=== PATIENT | male | born 2000 | race Caucasian/White ===

== ENCOUNTER 2024-10-12 12:05 | Observation (INO) ==
--- NOTE | 2024-10-12 12:30 | XRay Report ---
XR chest 1V not portable CLINICAL HISTORY: Chest pain, nonspecific COMPARISON STUDY: 12/27/2020 FINDINGS: Heart size and pulmonary vasculature are normal. No effusion, consolidation, or pneumothora x. IMPRESSION: No acute findings. ACT 112: Negative or not required by law. Electronically signed by: Mike Cárdenas M.D. 10/12/2024 12:29 PM
[2024-10-12 12:37] LABS: Basophils # (auto) 0.02 K/uL (0.00-0.20); Basophils % (auto) 0.1 %; Hematocrit (blood only) 39.1 % (42.0-52.0); Hemoglobin 13.5 g/dl (14.0-18.0); Immature Granulocytes # (auto) 0.06 K/uL (0.01-0.20); Immature Granulocytes % (auto) 0.4 %; Lymphocytes # (auto) 1.02 K/uL (1.20-3.40); Mean Corpuscular Hgb Conc 34.5 g/dL (32.0-36.0); Mean Corpuscular Volume 86.9 fL (80.0-100.0); Mean Platelet Volume 11.4 fL (9.4-12.4); Monocytes # (auto) 1.01 K/uL (0.11-0.59); Monocytes % (auto) 5.9 %; Neutrophils # (auto) 14.95 K/uL (1.40-6.50); Neutrophils % (auto) 87.6 %; Platelet Count 172 K/uL (130-400); RDW Coefficient of Variation 13.2 % (11.5-14.5); RDW Standard Deviation 41.5 fL (36.4-46.3); White Blood Count 17.06 K/ul (4.8-10.8)
[2024-10-12] MEDS: ONDANSETRON INJ 2 MG/ML 2 ML VIAL IV STA (12:45)
[2024-10-12] MEDS: MoRPHine SULFATE 2 MG/ML CARP IV STA (12:45)
[2024-10-12 12:51] LABS: Albumin Globulin Ratio 1.3 (0.9-2); Albumin Level 4.5 gm/dl (3.4-5.0); Bilirubin,Total 0.8 mg/dl (0.2-1.0); Calcium 9.7 mg/dl (8.6-10.3); Creatinine Clr Calc Pharmacy 114.8 ml/min; Globulin 3.5 gm/dl (2.5-4.0); Magnesium 1.8 mg/dl (1.7-2.4); Potassium 3.8 mmol/L (3.5-5.1)
[2024-10-12 12:58] LABS: Troponin I High Sensitivity 4.6 pg/ml (0-20)
[2024-10-12 13:02] LABS: Partial Thromboplastin Ratio 1.2; Partial Thromboplastin Time 31 Seconds (21-31); Prothrombin Time 11.3 Seconds (9.0-12.0)
[2024-10-12] MEDS: OPTIRAY 320 125ml IV ONE (13:25)
--- NOTE | 2024-10-12 13:38 | CT Scan Report ---
CT angio chest PE protocol CT DOSE: 707.07 mGy.cm HISTORY: PE. TECHNIQUE: Multiple CTA images of the chest were obtained after the intravenous administration of 120 ml Optiray. Coronal and sagittal MIPS were obtained from the axial data set and were submitted for review. All measurements were obtained according to NASCET criteria. A dose lowering technique was u tilized adhering to the principles of ALARA. COMPARISON STUDY: Chest x-ray earlier today FINDINGS: There is surgical suture at the right lung apex. There is a 7 mm irregular pulmonary nodule lateral inferior right upper lobe series 4 image 137. There is no pulmonary consolidation or pleural effusion. No pneumothorax. No enlarged adenopathy. No pericardial effusion. No thoracic aortic disse ction or aneurysm. No pulmonary embolism. No acute osseous findings. IMPRESSION: 1. No pulmonary embolism or pneumonia seen. 2. 7 mm right upper lobe pulmonary nodule. No prior CT scan is available for comparison. If there are outside CT scans available which establish greater than 2 years of stability for this finding, no fu rther follow-up is needed. If not, follow-up chest CT recommended in 6 months. ACT 112: Positive. There are findings on this exam that require communication between the performing entity and the patient following Patient Test Result Information Act ([place] Act 112) guidelines. The above report was generated using voice recognition software. It may contain grammatical, syntax o r spelling errors. Electronically signed by: Mike Cárdenas M.D. 10/12/2024 1:36 PM
[2024-10-12] MEDS: SODIUM CHLORIDE 0.9% 1,000 ML IV ONE ×2 (13:49→15:00)
[2024-10-12] MEDS: ACETAMINOPHEN 1,000 MG/100 ML VIAL IV STA (13:49)
--- NOTE | 2024-10-12 14:02 | Emergency Department Note ---
Impression & Plan SIRS (systemic inflammatory response syndrome), Chest pain, Shortness of breath, Leukocytosis, Fever, Sinus tachycardia ED Provider Note HISTORY OF PRESENT ILLNESS: Patient is a 24-year-old male presenting with chest pain and shortness of breath. Patient reports that he started feeling very short of breath yesterday. 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 He states that he has had continuous, lower chest pain since yesterday. He states that it feels like there is a band wrapping around his lower chest and it is hard to breathe. He states that today while at work it was hard for him to walk up a hill with a tool bag secondary to being so short of breath. 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 He denies any recent fevers or cough. Denies any recent sick contact exposures. He denies any abdominal pain, nausea or vomiting. He denies any dysuria or hematuria. ROS: as above PHYSICAL EXAM: Constitutional: Patient appears in no acute distress. HENT: Head: Normocephalic and atraumatic. Eyes: EOMI, PERRL Mouth/Throat: Mucous membranes moist. Neck: Trachea midline. Neck supple. Cardiovascular: Tachycardic with regular rhythm. No murmurs, rubs or gallops. Intact distal pulses. Pulmonary/Chest: No respiratory distress. Breath sounds clear and equal bilaterally. No wheezes or rales. Abdominal: Abdomen soft, no tenderness, rebound or guarding. Musculoskeletal: No edema, tenderness or deformity noted. Skin: Warm and dry. No rash, erythema, pallor or cyanosis Psychiatric: Appropriate mood and affect for situation. Neurological: Alert and keenly responsive. CN II-XII grossly intact, moving all extremities equally and fully. MDM: - Vitals signs showed tachycardia - History obtained via patient. History as above. - Chronic conditions affecting care: Mycoplasma pneumonia; recurrent pneumothoraces - Differential diagnoses include, but are not limited to: Acute coronary syndrome; pulmonary embolism; dissection; tension pneumothorax; esophageal rupture; pneumonia - Order placed for continuous cardiac monitoring. At this time, monitor showed rate of 125 bpm with normal sinus rhythm, per my interpretation. - External medical records reviewed. Primary care visit note dated 01/21/2024 was reviewed. Patient was seen to establish care. His tetanus shot was updated at that visit. - EKG image interpreted by myself showed normal sinus rhythm. Rate tachycardic at 118 bpm. QT 318. No acute ischemic changes. - Laboratory workup interpreted by myself showed leukocytosis (WBC 17.06) with neutrophil predominance; normal PT/INR; normal lactate; hyponatremia (Na 135); normal procalcitonin; normal troponin; normal AST/ALT - Blood cultures obtained - CXR image reviewed by myself is negative for pneumothorax or pneumonia, per my interpretation. - Patient initially given 4 mg IV morphine and 4 mg IV zofran for chest pain symptoms. He was febrile in the emergency department and given 1 g of IV Tylenol. Given his persistent tachycardia, he was given a total of 2 L normal saline. - Patient's sepsis fluid volume calculation based on ideal body weight is 2427.00 mL. - Given 2g IV rocephin empirically - CT PE negative for PE or pneumonia. Noted to have a 7mm right upper lobe pulmonary nodule - UA negative for infection - Viral respiratory panel negative. - Patient's HR still tachycardic at 110 bpm, but improved from persistent 120s after 2L NS. - Tick borne illness studies added to patient's workup - Given patient's fever, tachycardia, tachypnea and leukocytosis, patient meets SIRS criteria. - Discussion was had with case manager specialist about patient's case and need for admission - Hospitalist, Dr. Araiza, consulted for admission - [facility]. I have personally spent 32 minutes of critical care time in the direct management of this patient. This includes bedside care, interpretation of diagnostic studies, and testing, discussion with consultants, patient, and family members, and other required patient management activities. This 32 minutes is in excess of all separately billable procedures. ASSESSMENT AND PLAN: Diagnosis: SIRS; chest pain; shortness of breath; sinus tachycardia; leukocytosis; fever Plan: Admit Past Med/Surg History Problem List (Updated 10/12/24 @ 16:02 by Alexa Membreno MD) Sinus tachycardia (Acute) Fever (Acute) Leukocytosis (Acute) Shortness of breath (Acute) Chest pain (Acute) SIRS (systemic inflammatory response syndrome) (Acute) Patellar tendonitis of right knee Medical History Pneumothorax Mycoplasma pneumonia Surgical History S/P lobectomy of lung Family History Father Diabetes Hypertension Stroke Grandmother Diabetes Mother Epilepsy Other No significant family history Social History Smoking Status: Never smoker Hx Alcohol Use: Yes Alcohol type: beer Alcohol Intake Frequency: 2-4 x/Month Hx Substance Use: No Preferred Language: German marital status: Current Living Situation: Significant Other current occupational status: employed current occupation: [employer] Feels Safe at Home: Yes Childhood Exposure to Second-Hand Smoke: Yes Diet: regular caffeine: Yes Dental Care, Regularly: Yes Physical Activity Frequency: Daily Seatbelt Use: always Sunscreen Use: Yes Allergies Allergies Allergy/AdvReac Type Severity Reaction Status Date / Time No Known Allergies Allergy Unverified 05/04/24 10:38 Home Meds Home Medications Medication Instructions Recorded Confirmed No Known Home Medications 10/12/24 10/12/24 Results & Data (ED) Vital Signs Vital Signs - 24 hr 10/12/24 12:07 10/12/24 12:15 10/12/24 12:30 Temperature 36.6 C Temperature Source Temporal Artery Scan Pulse Rate 125 H 109 H 108 H Pulse Rate from SpO2 Sensor 114 H Pulse Rhythm Regular Respiratory Rate 20 19 17 Respiratory Effort / Characteristics Non-Labored Spontaneous Respiratory Depth Normal Respiratory Pattern Regular Blood Pressure 124/91 Blood Pressure [Left Arm] Blood Pressure Mean 102 Blood Pressure Mean [Left Arm] Blood Pressure Position [Left Arm] Pulse Oximetry 98 98 99 Oxygen Delivery Method Room Air Room Air Sepsis Recent Fever Within 48 Hours No Sepsis New/Unexplained Change in Mental Status No Sepsis Action Taken by Nursing No Action Required 10/12/24 12:42 10/12/24 12:54 10/12/24 13:20 Temperature 38.1 C H Temperature Source Oral Pulse Rate 105 H 106 H Pulse Rate from SpO2 Sensor 106 H 108 H Pulse Rhythm Respiratory Rate 24 17 Respiratory Effort / Characteristics Respiratory Depth Respiratory Pattern Blood Pressure Blood Pressure [Left Arm] Blood Pressure Mean Blood Pressure Mean [Left Arm] Blood Pressure Position [Left Arm] Pulse Oximetry 96 94 Oxygen Delivery Method Sepsis Recent Fever Within 48 Hours Sepsis New/Unexplained Change in Mental Status Sepsis Action Taken by Nursing 10/12/24 13:25 10/12/24 14:31 10/12/24 14:35 Temperature 36.5 C Temperature Source Temporal Artery Scan Pulse Rate 123 H Pulse Rate from SpO2 Sensor Pulse Rhythm Respiratory Rate Respiratory Effort / Characteristics Respiratory Depth Respiratory Pattern Blood Pressure Blood Pressure [Left Arm] 93/55 L Blood Pressure Mean Blood Pressure Mean [Left Arm] 67 Blood Pressure Position [Left Arm] Lying Pulse Oximetry Oxygen Delivery Method Sepsis Recent Fever Within 48 Hours Sepsis New/Unexplained Change in Mental Status Sepsis Action Taken by Nursing 10/12/24 14:36 Temperature Temperature Source Pulse Rate Pulse Rate from SpO2 Sensor Pulse Rhythm Respiratory Rate Respiratory Effort / Characteristics Respiratory Depth Respiratory Pattern Blood Pressure Blood Pressure [Left Arm] 98/52 L Blood Pressure Mean Blood Pressure Mean [Left Arm] 67 Blood Pressure Position [Left Arm] Lying Pulse Oximetry Oxygen Delivery Method Sepsis Recent Fever Within 48 Hours Sepsis New/Unexplained Change in Mental Status Sepsis Action Taken by Nursing Laboratory Data 10/12/24 12:19 10/12/24 12:19 Lab Results 10/12/24 10/12/24 10/12/24 Range/Units 12:19 14:00 15:12 WBC 17.06 H (4.8-10.8) K/ul RBC 4.50 L (4.70-6.10) M/uL Hgb 13.5 L (14.0-18.0) g/dl Hct 39.1 L (42.0-52.0) % MCV 86.9 (80.0-100.0) fL MCH 30.0 (25.0-34.0) pg MCHC 34.5 (32.0-36.0) g/dL RDW Std Deviation 41.5 (36.4-46.3) fL RDW Coeff of Alecia 13.2 (11.5-14.5) % Plt Count 172 (130-400) K/uL MPV 11.4 (9.4-12.4) fL Immature Gran % (Auto) 0.4 % Neut % (Auto) 87.6 % Lymph % (Auto) 6.0 % Estill % (Auto) 5.9 % Eos % (Auto) 0.0 % Baso % (Auto) 0.1 % Neut # (Auto) 14.95 H (1.40-6.50) K/uL Lymph # (Auto) 1.02 L (1.20-3.40) K/uL Estill # (Auto) 1.01 H (0.11-0.59) K/uL Eos # (Auto) 0.00 (0.00-0.50) K/uL Baso # (Auto) 0.02 (0.00-0.20) K/uL Immature Gran # (Auto) 0.06 (0.01-0.20) K/uL PT 11.3 (9.0-12.0) Seconds INR 1.0 (0.9-1.1) APTT 31 (21-31) Seconds PTT Ratio 1.2 Sodium 135 L (136-145) mmol/L Potassium 3.8 (3.5-5.1) mmol/L Chloride 99 (98-107) mmol/L Carbon Dioxide 28 (21-32) mmol/L Anion Gap 8 (3-11) BUN 14 (6-23) mg/dl Creatinine 1.08 (0.6-1.4) mg/dl Est Cr Clr Drug Dosing 114.8 ml/min eGFR 97.67 BUN/Creatinine Ratio 13.0 (10-20) Glucose 106 H (70-99(Fasting)) mg/dl Lactate 0.8 (0.4-2.0) mmol/L Calcium 9.7 (8.6-10.3) mg/dl Magnesium 1.8 (1.7-2.4) mg/dl Total Bilirubin 0.8 (0.2-1.0) mg/dl AST 22 (13-39) U/L ALT 12 (7-52) U/L Alkaline Phosphatase 58 (34-104) U/L Troponin I High Sens 4.6 (0-20) pg/ml Total Protein 8.0 (6.0-8.3) gm/dl Albumin 4.5 (3.4-5.0) gm/dl Globulin 3.5 (2.5-4.0) gm/dl Albumin/Globulin Ratio 1.3 (0.9-2) Procalcitonin 0.08 (0-0.5) ng/ml Urine Color Urine Appearance (Clear) Urine pH (4.5-7.5) Ur Specific [place] (1.000-1.030) Urine Protein (Negative) Urine Glucose (UA) (Negative) Urine Ketones (Negative) Urine Blood (Negative) Urine Nitrite (Negative) Urine Bilirubin (Negative) Urine Urobilinogen (Negative) Ur Leukocyte Esterase (Negative) Urine Comment Adenovirus (PCR) Not Detected (NotDetected) B. pertussis DNA (PCR) Not Detected (NotDetected) B.parapertussis DNA PCR Not Detected (NotDetected) C. pneumoniae DNA (PCR) Not Detected (NotDetected) Coronavirus OC43 (PCR) Not Detected (NotDetected) Coronavirus HKU1 (PCR) Not Detected (NotDetected) Coronavirus 229E (PCR) Not Detected (NotDetected) SARS-CoV-2 (PCR) Not Detected (NotDetected) Coronavirus NL63 (PCR) Not Detected (NotDetected) Human Metapneumovir PCR Not Detected (NotDetected) Influenza Type A (PCR) Not Detected (NotDetected) Influenza Type B (PCR) Not Detected (NotDetected) M. pneumoniae (PCR) Not Detected (NotDetected) Parainfluenza 1 (PCR) Not Detected (NotDetected) Parainfluenza 2 (PCR) Not Detected (NotDetected) Parainfluenza 3 (PCR) Not Detected (NotDetected) Parainfluenza 4 (PCR) Not Detected (NotDetected) RSV (PCR) Not Detected (NotDetected) Entero/Rhino (PCR) Not Detected (NotDetected) 10/12/24 Range/Units 15:21 WBC (4.8-10.8) K/ul RBC (4.70-6.10) M/uL Hgb (14.0-18.0) g/dl Hct (42.0-52.0) % MCV (80.0-100.0) fL MCH (25.0-34.0) pg MCHC (32.0-36.0) g/dL RDW Std Deviation (36.4-46.3) fL RDW Coeff of Alecia (11.5-14.5) % Plt Count (130-400) K/uL MPV (9.4-12.4) fL Immature Gran % (Auto) % Neut % (Auto) % Lymph % (Auto) % Estill % (Auto) % Eos % (Auto) % Baso % (Auto) % Neut # (Auto) (1.40-6.50) K/uL Lymph # (Auto) (1.20-3.40) K/uL Estill # (Auto) (0.11-0.59) K/uL Eos # (Auto) (0.00-0.50) K/uL Baso # (Auto) (0.00-0.20) K/uL Immature Gran # (Auto) (0.01-0.20) K/uL PT (9.0-12.0) Seconds INR (0.9-1.1) APTT (21-31) Seconds PTT Ratio Sodium (136-145) mmol/L Potassium (3.5-5.1) mmol/L Chloride (98-107) mmol/L Carbon Dioxide (21-32) mmol/L Anion Gap (3-11) BUN (6-23) mg/dl Creatinine (0.6-1.4) mg/dl Est Cr Clr Drug Dosing ml/min eGFR BUN/Creatinine Ratio (10-20) Glucose (70-99(Fasting)) mg/dl Lactate (0.4-2.0) mmol/L Calcium (8.6-10.3) mg/dl Magnesium (1.7-2.4) mg/dl Total Bilirubin (0.2-1.0) mg/dl AST (13-39) U/L ALT (7-52) U/L Alkaline Phosphatase (34-104) U/L Troponin I High Sens (0-20) pg/ml Total Protein (6.0-8.3) gm/dl Albumin (3.4-5.0) gm/dl Globulin (2.5-4.0) gm/dl Albumin/Globulin Ratio (0.9-2) Procalcitonin (0-0.5) ng/ml Urine Color Yellow Urine Appearance Clear (Clear) Urine pH 6.5 (4.5-7.5) Ur Specific [place] > 1.045 H (1.000-1.030) Urine Protein Negative (Negative) Urine Glucose (UA) Negative (Negative) Urine Ketones 2+ H (Negative) Urine Blood Negative (Negative) Urine Nitrite Negative (Negative) Urine Bilirubin Negative (Negative) Urine Urobilinogen Negative (Negative) Ur Leukocyte Esterase Negative (Negative) Urine Comment Adenovirus (PCR) (NotDetected) B. pertussis DNA (PCR) (NotDetected) B.parapertussis DNA PCR (NotDetected) C. pneumoniae DNA (PCR) (NotDetected) Coronavirus OC43 (PCR) (NotDetected) Coronavirus HKU1 (PCR) (NotDetected) Coronavirus 229E (PCR) (NotDetected) SARS-CoV-2 (PCR) (NotDetected) Coronavirus NL63 (PCR) (NotDetected) Human Metapneumovir PCR (NotDetected) Influenza Type A (PCR) (NotDetected) Influenza Type B (PCR) (NotDetected) M. pneumoniae (PCR) (NotDetected) Parainfluenza 1 (PCR) (NotDetected) Parainfluenza 2 (PCR) (NotDetected) Parainfluenza 3 (PCR) (NotDetected) Parainfluenza 4 (PCR) (NotDetected) RSV (PCR) (NotDetected) Entero/Rhino (PCR) (NotDetected) Administered Medications Discontinued Medications Acetaminophen (Ofirmev) 1,000 mg in 100 mls @ 400 mls/hr IV NOW STA Stop: 10/12/24 13:50 Last Infusion: 10/12/24 14:07 Dose: Infused Documented By: Admin: 10/12/24 13:49 Dose: 400 mls/hr Documented By: PACO Sodium Chloride (Nss) 1,000 mls @ 999 mls/hr IV .Q1H1M ONE Stop: 10/12/24 14:36 Last Infusion: 10/12/24 15:19 Dose: Infused Documented By: Admin: 10/12/24 13:49 Dose: 999 mls/hr Documented By: PACO Sodium Chloride (Nss) 1,000 mls @ 999 mls/hr IV .Q1H1M ONE Stop: 10/12/24 15:46 Last Admin: 10/12/24 15:00 Dose: 999 mls/hr Documented By: PACO Ceftriaxone Sodium (Rocephin) 2,000 mg in 50 mls @ 100 mls/hr IV NOW STA Stop: 10/12/24 15:51 Last Admin: 10/12/24 15:35 Dose: 100 mls/hr Documented By: PACO Ioversol (Optiray 320 125ml) 120 ml IV ONCE ONE Stop: 10/12/24 13:26 Last Admin: 10/12/24 13:25 Dose: 120 ml Documented By: KIAH Morphine Sulfate (Morphine Sulfate 2 Mg/Ml Carp) 4 mg IV NOW STA Stop: 10/12/24 12:34 Last Admin: 10/12/24 12:45 Dose: 4 mg Documented By: PACO Ondansetron HCl (Ondansetron Inj 2 Mg/Ml 2 Ml Vial) 4 mg IV NOW STA Stop: 10/12/24 12:34 Last Admin: 10/12/24 12:45 Dose: 4 mg Documented By: PACO Imaging Data Radiologist's Impression: Chest X-Ray 10/12/24 12:15 XR chest 1V not portable CLINICAL HISTORY: Chest pain, nonspecific COMPARISON STUDY: 12/27/2020 FINDINGS: Heart size and pulmonary vasculature are normal. No effusion, consolidation, or pneumothorax. IMPRESSION: No acute findings. ACT 112: Negative or not required by law. Electronically signed by: Mike Cárdenas M.D. 10/12/2024 12:29 PM Chest CTA 10/12/24 12:33 CT angio chest PE protocol CT DOSE: 707.07 mGy.cm HISTORY: PE. TECHNIQUE: Multiple CTA images of the chest were obtained after the intravenous administration of 120 ml Optiray. Coronal and sagittal MIPS were obtained from the axial data set and were submitted for review. All measurements were obtained according to NASCET criteria. A dose lowering technique was utilized adhering to the principles of ALARA. COMPARISON STUDY: Chest x-ray earlier today FINDINGS: There is surgical suture at the right lung apex. There is a 7 mm irregular pulmonary nodule lateral inferior right upper lobe series 4 image 137. There is no pulmonary consolidation or pleural effusion. No pneumothorax. No enlarged adenopathy. No pericardial effusion. No thoracic aortic dissection or aneurysm. No pulmonary embolism. No acute osseous findings. IMPRESSION: 1. No pulmonary embolism or pneumonia seen. 2. 7 mm right upper lobe pulmonary nodule. No prior CT scan is available for comparison. If there are outside CT scans available which establish greater than 2 years of stability for this finding, no further follow-up is needed. If not, follow-up chest CT recommended in 6 months. ACT 112: Positive. There are findings on this exam that require communication between the performing entity and the patient following Patient Test Result Information Act ([place] Act 112) guidelines. The above report was generated using voice recognition software. It may contain grammatical, syntax or spelling errors. Electronically signed by: Mike Cárdenas M.D. 10/12/2024 1:36 PM Discharge Plan Visit Data Chief Complaint: Chest Pain Stated Complaint: TIGHT CHEST, CANT CATCH BREATH, BODY SORE ED Provider: Alexa Membreno Discharge Problem: SIRS (systemic inflammatory response syndrome), Chest pain, Shortness of breath, Leukocytosis, Fever, Sinus tachycardia Condition: Fair Forms Stand Alone Forms: [employer] [facility] [employer] Prescriptions Prescriptions: No Action No Known Home Medications Referrals Referrals: Shiela Mayorga CRNP [Primary Care Provider] -
[2024-10-12 15:10] LABS: Adenovirus PCR Not Detected (NotDetected); Bordetella parapertussis PCR Not Detected (NotDetected); Bordetella pertussis PCR Not Detected (NotDetected); Chlamydia pneumoniae PCR Not Detected (NotDetected); Coronavirus 229E PCR Not Detected (NotDetected); Coronavirus CoV-2 (COVID19)PCR Not Detected (NotDetected); Coronavirus HKU1 PCR Not Detected (NotDetected); Coronavirus NL63 PCR Not Detected (NotDetected); Coronavirus OC43PCR Not Detected (NotDetected); Human Metapneumovirus PCR Not Detected (NotDetected); Influenza A PCR Not Detected (NotDetected); Influenza B PCR Not Detected (NotDetected); Mycoplasma pneumoniae PCR Not Detected (NotDetected); Parainfluenza Virus 1 PCR Not Detected (NotDetected); Parainfluenza Virus 2 PCR Not Detected (NotDetected); Parainfluenza Virus 3 PCR Not Detected (NotDetected); Parainfluenza Virus 4 PCR Not Detected (NotDetected); Respiratory Syncytial VirusPCR Not Detected (NotDetected); Rhinovirus/Enterovirus PCR Not Detected (NotDetected)
[2024-10-12] MEDS: cefTRIAXone SODIUM 2,000 MG/50 ML BAG IV STA (15:35)
[2024-10-12 15:44] LABS: Appearance Urine Clear (Clear); Bilirubin Urine Negative (Negative); Blood Urine Negative (Negative); Color Urine Yellow; Glucose Urine UA Negative (Negative); Ketones Urine 2+ (Negative); Leukocyte Esterase Urine Negative (Negative); Nitrite Urine Negative (Negative); Protein Urine Negative (Negative); Specific Gravity Urine > 1.045 (1.000-1.030); Urobilinogen Urine Negative (Negative); pH Urine 6.5 (4.5-7.5)
--- NOTE | 2024-10-12 17:36 | History & Physical Report ---
Date of Service October 12, 2024 Assessment & Plan (1) Viral illness: Plan: Suspected cause of current symptoms including atypical chest discomfort, shortness of breath, intermittent fever. Parenteral steroid therapy ordered. IV fluids overnight. Supportive care (2) SIRS (systemic inflammatory response syndrome): Plan: Present on admission due to viral illness Plan Hopeful discharge to home tomorrowOctober 13 History of Present Illness Chief Complaint: Shortness of breath with exertion, atypical chest discomfort Primary Care Provider: ELE Simmons 24-year-old white male and previously good health who for the past day or 2 has had intermittent low-grade fever, shortness of breath with exertion, and atypical chest discomfort. Chest x-ray on admission is negative as is the chest CTA. EKG is unremarkable and troponin is normal. This appears to be a viral illness and he will be started on parenteral steroid therapy. Observation status for now and probably home tomorrow, October 13. He denies palpitations, syncope, productive cough, hemoptysis. No pleurisy symptoms Allergies Allergy/AdvReac Type Severity Reaction Status Date / Time No Known Allergies Allergy Unverified 05/04/24 10:38 Home Medications Medication Instructions Recorded Confirmed Type No Known Home Medications 10/12/24 10/12/24 History Past Med/Surg History Problem List (Updated 10/12/24 @ 17:35 by Florin Barillas MD) Viral illness Sinus tachycardia (Acute) Fever (Acute) Leukocytosis (Acute) Shortness of breath (Acute) Chest pain (Acute) SIRS (systemic inflammatory response syndrome) (Acute) Patellar tendonitis of right knee Medical History Pneumothorax Mycoplasma pneumonia Surgical History S/P lobectomy of lung Family History Father Diabetes Hypertension Stroke Grandmother Diabetes Mother Epilepsy Other No significant family history Social History Smoking Status: Never smoker Hx Alcohol Use: Yes Alcohol type: beer Alcohol Intake Frequency: 2-4 x/Month Hx Substance Use: No Preferred Language: Nigerien marital status: Current Living Situation: Significant Other current occupational status: employed current occupation: [employer] Feels Safe at Home: Yes Childhood Exposure to Second-Hand Smoke: Yes Diet: regular caffeine: Yes Dental Care, Regularly: Yes Physical Activity Frequency: Daily Seatbelt Use: always Sunscreen Use: Yes Review of Systems 2 Review of Systems: Constitutionalno fever or chills ENTno blurred vision, no double vision, no epistaxis, no sore throat Respiratoryno cough, no wheezing. He has noted some exertional shortness of breath Cardiacno palpitations, no syncope. Atypical chest discomfort at rest Alisa nausea, vomiting, diarrhea, melena, hematochezia GUno urinary retention, no urinary incontinence, no dysuria, no hematuria Musculoskeletalno joint pain, no muscle tenderness Skinno bruising, no rashes, no pruritus Neurono isolated weakness, no paresthesia, no weakness Psychno depression, no anxiety Physical Exam 2 Physical Exam: General-alert and oriented x3, no fever, no chills HEENT-head atraumatic and normocephalic, pupils equal and reactive to light, extraocular muscles intact Neck-no lymphadenopathy or thyromegaly, trachea midline Chest-clear to auscultation. No rales, wheezing or rhonchi Cardiac-regular rate and rhythm, normal S1 and S2 Abdomen-normal bowel sounds, no hepatosplenomegaly Extremities-no cyanosis, clubbing, or edema Neuro-cranial nerves II through XII intact, motor and sensory function within normal limits, strength symmetrical, no focal deficits Psych-normal affect, normal mood Results & Data Results & Data Vital Signs (Past 12 Hours) Vital Signs Temp Pulse Resp BP BP Pulse Ox O2 Del Method 10/12/24 17:22 100 H 10/12/24 14:36 98/52 L 10/12/24 14:35 93/55 L 10/12/24 14:31 36.5 C 10/12/24 13:25 123 H 10/12/24 13:20 38.1 C H 10/12/24 12:54 106 H 17 94 10/12/24 12:42 105 H 24 96 10/12/24 12:30 108 H 17 99 10/12/24 12:15 109 H 19 98 Room Air 10/12/24 12:07 36.6 C 125 H 20 124/91 98 Room Air Laboratory Results 10/12/24 12:19 10/12/24 12:19 Code Status & VTE Plan Code Status Full code PG Care Time/CCT Total # of Minutes Spent Total Time Spent with Patient: Total time spent is greater than 50% in coordination of care (as documented) at patient's floor/unit and/or counseling patient: Coding Level of Care Code 31815 INT INP/OBS CARE 2/55MIN Diagnoses Viral illness B34.9 SIRS (systemic inflammatory response syndrome) R65.10
[2024-10-12] MEDS: KETOROLAC TROMETHAMINE 15 MG/ML VIAL IV STA (19:00)
[2024-10-12] MEDS ORDERED: ONDANSETRON INJ 2 MG/ML 2 ML VIAL IV PRN (20:54)
[2024-10-12] MEDS ORDERED: methylPREDNISolone 10 mg/mL (For Ped Dose < 7mg) IV SCH (20:54)
[2024-10-12] MEDS: SODIUM CHLORIDE 0.9% 1,000 ML IV SCH (21:14)
[2024-10-12 21:19] LABS: BUN Creatinine Ratio 12.6 (10-20); Calcium 8.7 mg/dl (8.6-10.3); Creatinine Clr Calc Pharmacy 130.5 ml/min; Potassium 3.7 mmol/L (3.5-5.1)
[2024-10-12] MEDS: methylPREDNISolone 40 MG in SYRINGE 0 ML IV SCH (21:42)
[2024-10-12] MEDS: ACETAMINOPHEN 325 MG TAB PO PRN (21:48)
--- NOTE | 2024-10-13 06:21 | Electrocardiogram Report ---
Test Reason : Blood Pressure : */* mmHG Vent. Rate : 118 BPM Atrial Rate : 118 BPM P-R Int : 142 ms QRS Dur : 110 ms QT Int : 318 ms P-R-T Axes : 74 88 38 degrees QTcB Int : 445 ms Sinus tachycardia Incomplete right bundle branch block Borderline ECG When compared with ECG of 05-Jun-2019 23:48, No significant change was found Confirmed by Renato Ennis ([id number]) on 10/13/2024 6:21:35 AM Referred By: Shiela Mayorga Confirmed By: Renato Ennis
[2024-10-13 07:37] VITALS: PULSE 90; RESP 18; TEMP 98.2; O2SAT 97
[2024-10-13 07:46] LABS: Hematocrit (blood only) 38.2 % (42.0-52.0); Mean Corpuscular Hemoglobin 30.2 pg (25.0-34.0); Mean Corpuscular Volume 88.6 fL (80.0-100.0); Mean Platelet Volume 11.6 fL (9.4-12.4); Platelet Count 152 K/uL (130-400); RDW Coefficient of Variation 13.2 % (11.5-14.5); RDW Standard Deviation 43.2 fL (36.4-46.3); Red Blood Count 4.31 M/uL (4.70-6.10); White Blood Count 13.04 K/ul (4.8-10.8)
[2024-10-13 08:05] LABS: BUN Creatinine Ratio 13.5 (10-20); Calcium 8.9 mg/dl (8.6-10.3); Creatinine Clr Calc Pharmacy 167.5 ml/min; Potassium 4.2 mmol/L (3.5-5.1)
[2024-10-13 08:22] LABS: Basophils # (auto) 0.01 K/uL (0.00-0.20); Basophils % (auto) 0.1 %; Immature Granulocytes # (auto) 0.04 K/uL (0.01-0.20); Immature Granulocytes % (auto) 0.3 %; Lymphocytes # (auto) 0.68 K/uL (1.20-3.40); Lymphocytes % (auto) 5.2 %; Monocytes # (auto) 0.28 K/uL (0.11-0.59); Monocytes % (auto) 2.1 %; Neutrophils # (auto) 12.03 K/uL (1.40-6.50); Neutrophils % (auto) 92.3 %
--- NOTE | 2024-10-13 10:58 | Discharge Summary ---
Discharge Summary Date of Service October 13, 2024 Principal Dx & Hospital Course #1 = Principal Diagnosis (1) Viral illness: Suspected cause of current symptoms including atypical chest discomfort, shortness of breath, intermittent fever. Parenteral steroid therapy has resolved his symptoms. He will be discharged on a prednisone tapering dose. (2) SIRS (systemic inflammatory response syndrome): Present on admission due to viral illness. Now resolved Plan Home today, October 13, on a prednisone tapering dose Admission HPI Per Admitting Provider 24-year-old white male and previously good health who for the past day or 2 has had intermittent low-grade fever, shortness of breath with exertion, and atypical chest discomfort. Chest x-ray on admission is negative as is the chest CTA. EKG is unremarkable and troponin is normal. This appears to be a viral illness and he will be started on parenteral steroid therapy. Observation status for now and probably home tomorrow, October 13. He denies palpitations, syncope, productive cough, hemoptysis. No pleurisy symptoms Discharge Exam General-alert and oriented x3, no fever, no chills HEENT-head atraumatic and normocephalic, pupils equal and reactive to light, extraocular muscles intact Neck-no lymphadenopathy or thyromegaly, trachea midline Chest-clear to auscultation. No rales, wheezing or rhonchi Cardiac-regular rate and rhythm, normal S1 and S2 Abdomen-normal bowel sounds, no hepatosplenomegaly Extremities-no cyanosis, clubbing, or edema Neuro-cranial nerves II through XII intact, motor and sensory function within normal limits, strength symmetrical, no focal deficits Psych-normal affect, normal mood Discharge Plan Discharge Items Patient Disposition: Home - Self-Care Reason For Visit: VIRAL ILLNESS Discharge Diagnosis: Acute viral illness causing atypical chest pain and shortness of breath Condition on Discharge: Good Activity: Resume your previous activity Non-emergency contact: Primary Care Provider Call non-emergency contact if: your symptoms worsen Follow-up/Referrals: Shiela Mayorga CRNP [Primary Care Provider] - Diet: Regular Addtl Attending Provider Instructions: Take prednisone in a tapering dose fashion as directed. A prescription has been sent to your pharmacy at [facility] on [address]. Pending Studies at Discharge: No Stand-Alone Forms: My [facility] Txt4, Smoking Cessation Medications and DC Order Prescriptions: New prednisone 10 mg tablet See Rx Instructions .ROUTE .COMPLEX Qty: 12 0RF Rx Instructions: 10 mg orally 3 times a day for 2 days, then 10 mg twice a day for 2 days, then 10 mg once a day for 2 days, then stop Discharge Orders: Discharge Order (Routine); Ordered 10/13/24 Ordered By: Florin Barillas Admission Data Admit Date/Time: 10/12/24 17:27 Attending Provider: Florin Barillas Admit Provider: Florin Barillas Primary Care Provider: Shiela Mayorga Hospital Stay Data Diagnostic Imagining Performed 10/12/24 12:33 CT for pulmonary embolism PE [CT angio chest PE protocol] Stat Pending Results Patient Have Any Pending Studies at Discharge: No Discharge Instructions Given to Patient (Per Discharging Provider) Take prednisone in a tapering dose fashion as directed. A prescription has been sent to your pharmacy at [facility] on [address]. Total Time Total Time Spent Total Time Spent (In Minutes): 45-minute Coding Level of Care Code 47069 INP/OBS DISCH >30 MIN Diagnoses Viral illness B34.9 SIRS (systemic inflammatory response syndrome) R65.10
[2024-10-13 11:27] VITALS: BP 127/74
[2024-10-17 19:37] LABS: Babesia microti DNA Not Detected (Not Detected)
== END 2024-10-13 11:45 | disposition home or self-care (01) ==
LOC: SUATTDRO → ED 12:05 → 3N 12:05